=== PATIENT | female | born 1960 | race Hispanic/Latino ===

== ENCOUNTER 2017-05-14 08:57 | Day surgery (SDC) | payer MEDICAID ==
[~2017-05-14] VITALS: Ht 154.9 cm; Wt 53.5 kg
[~2017-05-14 08:57] MED LIST: CARB200T6 PO; CLON1TAB4 PO; FOLI1TAB15 PO; LORA1TAB3 PO; OMEP20TA25 PO; PHEN100C9 PO; PHEN97.29 PO; PROM25TA7 PO; SERT25TA5 PO; TRAM50TA4 PO; TRAZ-144 PO
[2017-05-14] MEDS ORDERED: MECL-111 PO (09:53)
[2017-05-14 09:54] VITALS: BP 145/82
[2017-05-14] MEDS ORDERED: PROPOFOL 10 MG/ML 20ML VIAL IV ONE ×2 (10:40→10:41)
[2017-05-14] MEDS ORDERED: MIDAZOLAM HCL 1 MG/ML 2ML VIAL ONE (10:41)
[2017-05-14] MEDS ORDERED: MEPERIDINE-PF 25 MG/ML SYG ONE (11:20)
== END 2017-05-14 11:59 ==
LOC: DAH 08:57
PROVIDERS: ATTEND Internal Medicine
DX: K63.5 Polyp of colon (principal); F41.9 Anxiety disorder, unspecified; F32.9 Major depressive disorder, single episode, unspecified; G40.909 Epilepsy, unspecified, not intractable, without status epilepticus
CPT/HCPCS: 45380; 88305; J2175; J2250; J2704 ×2